=== PATIENT | male | born 1975 | race Caucasian/White ===

== ENCOUNTER 2018-07-03 19:32 | Emergency (ER) | payer OTHER ==
[~2018-07-03] VITALS: Ht 170.2 cm; Wt 81.7 kg
[2018-07-03 19:39] VITALS: BP 127/84
[2018-07-03] MEDS ORDERED: KEFLEX500 M1 PO (19:54)
== END 2018-07-03 20:12 | disposition home or self-care (01) ==
LOC: M.ERS 19:32
DX: S61.211A Laceration without foreign body of left index finger without damage to nail, initial encounter (principal); W26.9XXA Contact with unspecified sharp object(s), initial encounter; Y93.89 Activity, other specified; Y92.89 Other specified places as the place of occurrence of the external cause; Y99.8 Other external cause status